=== PATIENT | female | born 1930 | race Caucasian/White ===

== ENCOUNTER 2018-02-03 20:00 | Emergency (ER) | payer OTHER ==
[~2018-02-03] VITALS: Ht 157.5 cm; Wt 43.1 kg
[~2018-02-03 20:00] MED LIST: ADULT SUPPOSIT1 EACH RECTAL; ASPIR 8181 MG PO; CARBIDOPA-LEVO1 EAC8 PO; CARVEDILOL12.5 MG PO; CENTRUM SILVER1 EAC4 PO; CITRACAL D + H1 EACH PO; CLARITIN10 MG PO; CLONAZEPAM 0.50.5 M1 PO; COREG25 MG PO; COREG6.25 MG PO; FISH OIL 1,001000 M2 PO; HYDRALAZINE 2525 MG PO; HYDROCHLOROTH12.5 M1 PO; HYDROCODONE-AP1 EAC6 PO; MELATONIN5 M1 PO; NORCO 5-325 TA1 EAC1 PO; OCUVITE EYE +1 EACH PO; OCUVITE TABLET1 EAC1 PO; VITAMIN B122500 MCG PO; VITAMIN D1000 UNI2 PO
[2018-02-03] MEDS ORDERED: FISH OIL 1,001000 M2 (20:19)
[2018-02-03] MEDS ORDERED: D3 DOTS2000 UNIT (20:19)
[2018-02-03 20:40] LABS: URINE BILIRUBIN NEGATIVE (Negative); URINE BLOOD NEGATIVE (Negative); URINE CLARITY CLEAR; URINE COLOR YELLOW; URINE GLUCOSE-RANDOM NEGATIVE (Negative); URINE KETONES NEGATIVE (Negative); URINE LEUKOCYTES-REFLEX NEGATIVE (Negative); URINE NITRITE-REFLEX NEGATIVE (Negative); URINE PROTEIN NEGATIVE (Negative); URINE UROBILINOGEN 0.2 E.U./dl (0.2-1.0)
[2018-02-03 20:43] LABS: ABSOLUTE EOSINOPHILS 0.3 thou/uL (0.0-0.7); ABSOLUTE LYMPHOCYTES 1.6 thou/uL (0.8-5.3); ABSOLUTE MONOCYTES 0.7 thou/uL (0.0-1.2); ABSOLUTE NEUTROPHILS 5.4 thou/uL (1.6-8.1); BASOPHILS 0.5 %; EOSINOPHILS 4.2 %; HEMATOCRIT 37.9 % (37.0-47.0); HEMOGLOBIN 12.6 gm/dL (12.0-15.0); LYMPHOCYTES 20.1 %; MCH 31.6 pg (26.0-34.0); MCHC 33.2 g/dL (28.0-37.0); MCV 95.2 fL (80.0-100.0); MONOCYTES 8.4 %; MPV 6.9 fl. (7.2-11.1); NUCLEATED RBCS 0 /100WBC; PLATELET COUNT* 273 thou/uL (150-400); POLYS 66.8 %; RBC 3.99 mil/uL (4.20-5.00); RDW-CV 13.4 % (10.5-14.5); WBC 8.1 thou/uL (4.0-11.0)
[2018-02-03 20:59] LABS: ANION GAP 6 mmol/L (7-16); BUN 11 mg/dL (7-18); CALCIUM 9.8 mg/dL (8.5-10.1); CHLORIDE 100 mmol/L (98-107); CO2 31 mmol/L (21-32); CREATININE 0.7 mg/dL (0.6-1.3); GLUCOSE 118 mg/dL (70-99); POTASSIUM 3.8 mmol/L (3.5-5.1); SODIUM 137 mmol/L (136-145)
[2018-02-03 21:11] LABS: ALBUMIN 3.6 g/dL (3.4-5.0); ALKALINE PHOSPHATASE 76 U/L (46-116); LIPASE 105 U/L (73-393); NT-PRO BRAIN NAT PEPTIDE 179 pg/mL (<300); SGOT 21 U/L (15-37); SGPT 6 U/L (30-65); TOTAL BILIRUBIN 0.4 mg/dL (<0.1-1.0); TOTAL PROTEIN 7.1 g/dL (6.4-8.2); TROPONIN-I LEVEL <0.06 ng/mL (<0.06)
[2018-02-03 21:20] LABS: INR 1.1; PROTIME 10.9 Seconds (9.20-11.50)
[2018-02-03] MEDS ORDERED: PREDNISONE50 MG PO (21:49)
[2018-02-03 22:00] VITALS: BP 119/54
--- NOTE | 2018-02-04 10:18 | EKG ---
[place] [address] ELECTROCARDIOGRAM REPORT Name: ALPESH DUMONTLIS Mindi [facility]OD[facility]lysa#: [id number] Admission: 02/03/18 Attend Phys: Discharge: 02/03/18 Date of : 32 Report #: [id number] THIS REPORT FOR: //name// [facility] ED Test Date: 2018-02-03 Test Time: 20:40:20 Pat Name: AYLEEN DUMONT Department: Room: Gender: F Engineering Recruiter: ROSA MARIA Obregon : 1930 Requested By: Melinda Wills Order Number: [id number] MD: Issa Adler Measurements Intervals [place] Rate: 71 P: 52 ND: 198 QRS: 3 QRSD: 95 T: 75 QT: 383 QTc: 417 Interpretive Statements Sinus rhythm Probable left ventricular hypertrophy Compared to ECG 06/06/2017 13:23:20 Early repolarization no longer present Electronically Signed On 02-04-2018 10:18:32 CDT by Issa Adler [email or web address] <ELECTRONICALLY SIGNED> By: Issa Adler MD, [facility] 02/04/18 [id number] Issa Adler MD, FACC /EPI
== END 2018-02-03 22:07 | disposition home or self-care (01) ==
LOC: M.ERS 20:00
PROVIDERS: Emergency Medicine
DX: J40 Bronchitis, not specified as acute or chronic (principal); I10 Essential (primary) hypertension; G20 Parkinson's disease

== ENCOUNTER → 2018-06-25 | Outpatient (CLI) | payer OTHER ==
[~2018-06-25] MED LIST changes: +D3 DOTS2000 UNIT; +FISH OIL 1,001000 M2; +PREDNISONE50 MG PO
== END ==
LOC: M.RAD 10:55
DX: R25.1 Tremor, unspecified (principal); Z86.69 Personal history of other diseases of the nervous system and sense organs

== ENCOUNTER → 2018-07-17 | Outpatient (CLI) | payer OTHER ==
[2018-07-17 10:59] LABS: CALCIUM 9.2 mg/dL (8.5-10.1); CREATININE 0.6 mg/dL (0.6-1.3); POTASSIUM 4.2 mmol/L (3.5-5.1)
== END ==
LOC: M.LAB 09:52 → M.CT 11:00
PROVIDERS: Internal Medicine Pulmonary Disease
DX: R06.89 Other abnormalities of breathing (principal)